=== PATIENT | female | born 1940 ===

== ENCOUNTER 2022-03-16 14:08 | Outpatient (CLI) | payer MEDICARE, MEDICAID | END 2022-03-16 14:09 | disposition home or self-care (01) | LOC: CSHWCC 14:08 | PROVIDERS: ATTEND Nurse Practitioner Family | DX: T24.232D Burn of second degree of left lower leg, subsequent encounter (principal); T23.262D Burn of second degree of back of left hand, subsequent encounter; T22.212D Burn of second degree of left forearm, subsequent encounter; S11.80XD Unspecified open wound of other specified part of neck, subsequent encounter; S31.000D Unspecified open wound of lower back and pelvis without penetration into retroperitoneum, subsequent encounter | CPT/HCPCS: 97139; G0463; 99205 ==

== ENCOUNTER 2022-04-20 10:32 | Outpatient (CLI) | payer MEDICARE, OTHER | END 2022-04-20 10:33 | disposition home or self-care (01) | LOC: CSHWCC 10:32 | PROVIDERS: ATTEND Nurse Practitioner Family | DX: T24.232D Burn of second degree of left lower leg, subsequent encounter (principal) | CPT/HCPCS: 97139; G0463; 99213 ==

== ENCOUNTER 2022-05-11 10:34 | Outpatient (CLI) | payer OTHER | END 2022-05-11 10:35 | disposition home or self-care (01) | LOC: CSHWCC 10:34 | PROVIDERS: ATTEND Nurse Practitioner Family | DX: T24.232D Burn of second degree of left lower leg, subsequent encounter (principal) ==